=== PATIENT | female | born 1955 | race Caucasian/White ===

== ENCOUNTER → 2018-02-09 09:03 | Outpatient (POV) | payer MEDICAID, SELFPAY ==
[2018-02-09 09:29] VITALS: BP 124/69; PULSE 104; RESP 18; O2SAT 98
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
== END ==
PROVIDERS: Family Provider Emergency Medicine; PCP Internal Medicine Adolescent Medicine; Visit Provider Clinical Nurse Specialist Family Health
DX: M51.36 Other intervertebral disc degeneration, lumbar region (principal)
CPT/HCPCS: 99202

== ENCOUNTER → 2018-05-29 11:19 | Outpatient (CLI) | payer MEDICAID, SELFPAY ==
--- NOTE | 2018-05-29 11:23 | XR_ITS ---
XR knee LT 3V HISTORY: Left knee pain ITS.REASON: OA LT KNEE ORDERING PHYSICIAN: John Sultana MD PATIENT AGE: 62 years COMPARISON: 06/01/2014 FINDINGS: There are moderate osteoarthritic changes of the medial lateral compartment and severe osteoarthritis of the patellofemoral joint. These findings are somewhat worse than when compared to the previous exam. Postsurgical changes are present with an intramedullary nas in the distal femur with 3 transverse screws. There is an old distal femur fracture. The proximal aspect of the nas is not visible on these images. Surgical clips are present along the proximal leg medially. IMPRESSION: Postsurgical change, posttraumatic change with moderate osteoarthritis is slightly worse. No acute fracture
== END ==
PROVIDERS: PCP Internal Medicine Adolescent Medicine; Visit Provider Internal Medicine Adolescent Medicine
DX: M17.12 Unilateral primary osteoarthritis, left knee (principal)
CPT/HCPCS: 73562

== ENCOUNTER 2018-06-16 09:00 | Outpatient (RCR) | payer MEDICAID, SELFPAY ==
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
== END 2018-06-16 09:01 | disposition home or self-care (01) ==
LOC: PT 09:00
PROVIDERS: Family Provider Emergency Medicine; PCP Internal Medicine Adolescent Medicine; Visit Provider Internal Medicine Adolescent Medicine
DX: M25.562 Pain in left knee (principal); M17.12 Unilateral primary osteoarthritis, left knee
CPT/HCPCS: 97110; 97163

== ENCOUNTER → 2018-08-01 08:28 | Outpatient (CLI) | payer MEDICAID, SELFPAY ==
[2018-08-01 08:45] LABS: Basophils % 0.4 % (0.1-2.0); Eosinophils # 0.2 K/mm3 (0.0-0.4); Eosinophils % 2.3 % (0.1-12.0); Hematocrit 45.8 % (37.0-47.0); Hemoglobin 14.3 g/dL (12.2-16.2); Lymphocytes # 2.7 K/mm3 (0.7-4.5); Lymphocytes % 28.4 % (10-50); Mean Corpuscular HGB Conc 31.2 g/dL (31.8-35.4); Mean Corpuscular Hemoglobin 28.8 pg (27.0-31.2); Mean Corpuscular Volume 92.1 fl (81-99); Mean Platelet Volume 8.4 fl (7.4-10.4); Monocytes # 0.3 K/mm3 (0.1-1.0); Monocytes % 3.4 % (1.7-9.3); Neutrophils # 6.3 K/mm3 (1.8-7.8); Neutrophils % 65.6 % (37.0-80.0); Platelet Count 339 K/mm3 (142-424); Red Blood Count 4.98 M/mm3 (4.20-5.40); Red Cell Distribution Width 14.1 % (11.5-17.5); White Blood Count 9.6 K/mm3 (4.8-10.8)
[2018-08-01 11:11] LABS: Alanine Aminotransferase 31 U/L (12-78); Albumin Level 3.8 gm/dL (3.4-5.0); Albumin/Globulin Ratio 1.1 (1.1-1.8); Alkaline Phosphatase 165 U/L (46-116); Aspartate Amino Transferase 19 U/L (15-37); Bilirubin,Total 0.3 mg/dL (0.2-1.0); Blood Urea Nitrogen 11 mg/dL (7-18); Calcium 9.5 mg/dL (8.5-10.1); Carbon Dioxide 28 mmol/L (21.0-32.0); Chloride 104 mmol/L (98-107); Cholesterol 331 mg/dL (140-200); Creatinine,Serum 0.56 mg/dL (0.55-1.02); Estimated Glomerular Filt Rate 109 ml/min (>60); Free Thyroxine Index 2.5 ug/dL (5.93-13.13); GFR (African American) 132 ML/MIN (>60); Globulin 3.4 gm/dl (1.3-3.2); Glucose 107 mg/dL (74-106); HDL Cholesterol 47 mg/dL (29-89); LDL Cholesterol 250 mg/dL (0-130); Sodium 143 mmol/L (136-145); Thyroid Stimulating Hormone 0.94 uIU/ml (0.358-3.740); Total Protein,Serum 7.2 gm/dL (6.4-8.2); Triglycerides 171 mg/dL (30-200); Triiodothryronine (T3) Uptake 31 % (31-39); VLDL Cholesterol 34 mg/dL (0-40)
[2018-08-03 10:35] LABS: Vitamin D 25 Hydroxy 24.9 ng/mL (30.0-100.0)
[2018-08-04 10:29] LABS: Vitamin B12 416 pg/mL (232-1245)
== END ==
PROVIDERS: Visit Provider Internal Medicine Adolescent Medicine
DX: I25.10 Atherosclerotic heart disease of native coronary artery without angina pectoris (principal); Z86.79 Personal history of other diseases of the circulatory system
CPT/HCPCS: 36415; 80053; 80061; 82607; 82652; 84436; 84443; 84479; 85025; 93225; 93226

== ENCOUNTER → 2019-05-25 08:06 | Outpatient (CLI) | payer MEDICAID, SELFPAY ==
--- NOTE | 2019-05-25 08:08 | US_ITS ---
PROCEDURE: US GALLBLADDER CLINICAL INDICATION: RUQ PAIN COMPARISON: No exams were available for comparison FINDINGS: Pancreas: Unremarkable/Not well seen Liver: Unremarkable. There is appropriate direction of blood flow within a non dilated portal vein. Right kidney: Unremarkable appearing. No hydronephrosis. Gallbladder: No stones are evident. There is no gallbladder wall thickening. Common duct is normal in diameter. IMPRESSION: Negative gallbladder ultrasound. No stones evident. Dictated by: Cruz Evans MD 05/25/2019 13:07 Electronically signed by Cruz Evans MD in [place] 05/25/2019 13:07
[2019-05-25 09:34] LABS: Basophils % 0.4 % (0.1-2.0); Eosinophils # 0.2 K/mm3 (0.0-0.4); Eosinophils % 2.8 % (0.1-12.0); Hematocrit 45.7 % (37.0-47.0); Hemoglobin 14.2 g/dL (12.2-16.2); Lymphocytes # 2.2 K/mm3 (0.7-4.5); Lymphocytes % 30.9 % (10-50); Mean Corpuscular Hemoglobin 29.3 pg (27.0-31.2); Mean Corpuscular Volume 94.4 fl (81-99); Mean Platelet Volume 9.3 fl (7.4-10.4); Monocytes # 0.3 K/mm3 (0.1-1.0); Monocytes % 3.6 % (1.7-9.3); Neutrophils # 4.3 K/mm3 (1.8-7.8); Neutrophils % 62.3 % (37.0-80.0); Platelet Count 301 K/mm3 (142-424); Red Blood Count 4.85 M/mm3 (4.20-5.40); Red Cell Distribution Width 13.9 % (11.5-17.5)
[2019-05-25 10:25] LABS: Alanine Aminotransferase 17 U/L (12-78); Albumin Level 3.7 gm/dL (3.4-5.0); Albumin/Globulin Ratio 1.3 (1.1-1.8); Alkaline Phosphatase 99 U/L (46-116); Amylase 25 U/L (25-115); Anion Gap 12.2 mEq/L (5-15); Aspartate Amino Transferase 20 U/L (15-37); Bilirubin,Total 0.2 mg/dL (0.2-1.0); Blood Urea Nitrogen 11 mg/dL (7-18); Calcium 9.3 mg/dL (8.5-10.1); Carbon Dioxide 28 mmol/L (21.0-32.0); Chloride 106 mmol/L (98-107); Creatinine,Serum 0.64 mg/dL (0.55-1.02); Estimated Glomerular Filt Rate 93 ml/min (>60); GFR (African American) 113 ML/MIN (>60); Globulin 2.9 gm/dl (1.3-3.2); Glucose 94 mg/dL (74-106); Lipase 72 u/L (73-393); Potassium 4.2 mmoL/L (3.5-5.1); Sodium 142 mmol/L (136-145); Total Protein,Serum 6.6 gm/dL (6.4-8.2)
== END ==
PROVIDERS: PCP Internal Medicine Adolescent Medicine; Visit Provider Internal Medicine Adolescent Medicine
DX: R10.11 Right upper quadrant pain (principal)
CPT/HCPCS: 36415; 76705; 80053; 82150; 83690; 85025

== ENCOUNTER → 2019-10-22 09:26 | Outpatient (CLI) | payer OTHER, SELFPAY ==
--- NOTE | 2019-10-22 09:29 | MM_ITS ---
PROCEDURE: MM DIG SCREENING MAMM BI W/CAD Patient Age:63Y CLINICAL INDICATION: SCREENING no hormones, no new complaints. Noncontributory family history COMPARISON: DIGMAMMS MAMMOGRAM SCREEN-[facility] N/C from 05/12/2006 DIGMAMMS MAMMOGRAM SCREEN-[facility] N/C from 05/11/2008 [facility] DIG MAMM-SCREEN RIYA from 06/30/2015 [facility] DIG MAMM-SCREEN RIYA W/CAD from 04/16/2017 TECHNIQUE: Standard CC and MLO images were obtained. R2 CAD reviewed. The Tomosynthesis views both breast in MLO and CC projection included FINDINGS: Low-density breast generalized fatty replacement with minimal residual fibroglandular features Right breast: No new areas of significant concern Vague low-density area at far lateral right breast 12 mm length x 6 mm. Has been present I believe on previous studies dating back to 2016, 2014 of mammograms; and even evident 2007 MLO view. This support stable stable minor asymmetric fibroglandular feature. Left breast stable,: No new areas of significant concern Minor ductal prominence retroareolar region again noted and the similar to previous studies . Bilateral follow-up 1 year recommended and encouraged IMPRESSION: Stable mammogram. Low-density breast with no new areas of significant concern Stable longstanding minor densities bilaterally . Follow-up 1 year recommended and encouraged BI-RAD Category: 2 Benign Finding(s) FOLLOW-UP: 1YR 1 Year Follow-up (A letter has been sent to the patient regarding results of the study.) Dictated by: Donell Chowdhury MD 11/02/2019 11:33 Electronically signed by Donell Chowdhury MD in [place] 11/02/2019 11:33
== END ==
PROVIDERS: PCP Internal Medicine; Visit Provider Internal Medicine
DX: Z12.31 Encounter for screening mammogram for malignant neoplasm of breast (principal)
CPT/HCPCS: 77063; 77067

== ENCOUNTER 2024-03-23 08:29 | Day surgery (SDC) | payer SELFPAY ==
[2024-03-23 10:01] VITALS: BMI 26.6
[2024-03-23] MEDS: TETRACAINE 0.5% OPTH SOL 15ML OP ×4 (10:15→10:37)
[2024-03-23] MEDS: CYCLOPENTOLATE 2% OPHTH SOLN 2ML BOTTLE OP ×3 (10:15→10:30)
[2024-03-23 10:18] VITALS: BP 188/101; PULSE 91; RESP 18; TEMP 36.2; O2SAT 99
[2024-03-23] MEDS: PHENYLEPHRINE 2.5% OPHTH SOLN 2ML OP ×3 (10:20→10:30)
[2024-03-23 11:03] VITALS: BP 182/87; PULSE 86; RESP 16; TEMP 36.8; O2SAT 96
[2024-03-23] MEDS: SODIUM CHLORIDE 0.9% 10ML FLUSH SYRINGE 10 ML IV (11:03)
[2024-03-23] MEDS: MIDAZOLAM 2MG/2ML VIAL 1 MG IV (11:03)
[2024-03-23] MEDS: LIDOCAINE 1% PF 2ML AMPULE 2 ML IJ (11:06)
[2024-03-23] MEDS: TIMOLOL 0.5% OPTH SOLN 5ML OP (11:06)
[2024-03-23] MEDS: TOBRAMYCIN/DEX OPTH SUSP 2.5ML OP (11:06)
[2024-03-23 11:08] VITALS: BP 184/86; PULSE 86; RESP 16; TEMP 36.8; O2SAT 96
[2024-03-23 11:13] VITALS: BP 170/83; PULSE 85; RESP 16; TEMP 36.8; O2SAT 96
[2024-03-23 11:22] VITALS: BP 164/93; PULSE 90; RESP 18; TEMP 36.2; O2SAT 98
--- NOTE | 2024-03-23 12:02 | HMH.PROCNOTE ---
[facility] Procedure Note Date: 03/23/24 Time: 12:02 Procedure Note:: Preoperative Diagnosis: Cataract combined NS Cortical Complex [Left] Eye Postop diagnosis: same Operation: Microscopic phacoemulsification with intraocular lens implant [Left] Eye Specimen: None Blood Loss: None The patient was examined in the office with a complaint of poor vision in the [left] eye. The patient reports that this interferes with ADLs such as reading, watching TV and/or driving or the vision is like looking through a foggy haze and is very troubling. The patient was examined and found to have a visually significant cataract with best corrected vision of [20/400] by refraction and/or glare testing. Treatment options, risks and benefits were explained and the patient elected to have cataract surgery in an attempt to improve their vision. The patient had the eye anesthetized with topical tetracaine, the eye ways prepped and draped in the usual fashion for cataract surgery. A paracentesis and a temporal keratotomy were made. 0.2cc of 1% lidocaine PF was placed into the anterior chamber. And aqueous/viscoelastic exchange was done and a 360 degree capsulorexis was performed. Through hydrodissection and delineation with BSS on a cannula was done. The lens nucleus was phecoemulsified with CDE of [ 7.02]. Residual cortical material was removed using automated I&A The capsular bag was deepened with viscoelastica and a PCIOL was placed in the capsular bag with good centration and stability. Residual viscoelastic was removed using automated I&A. The keratotomy incision was hydrated with BSS on a cannula. The wound were checked and found to be water tight. IOP was checked digitally and adjusted as needed so as not to be too high. 1 drop of timolol 0.5%, ofloxacin, prednisolone acetate and ketorolac was instilled and eye shield taped over the eye. The patient was taken to recovery in good condition and will be seen postoperatively.
== END 2024-03-23 11:35 | disposition home or self-care (01) ==
PROVIDERS: Visit Provider Ophthalmology
PROC: (CPT 66984; principal; 2024-03-23 11:30)
DX: H25.812 Combined forms of age-related cataract, left eye (principal)
CPT/HCPCS: 66984; J2250; V2632